=== PATIENT | female | born 1990 ===

== ENCOUNTER 2018-12-22 16:50 | Emergency (ER) | payer OTHER ==
[~2018-12-22] VITALS: Ht 157.5 cm; Wt 99.8 kg
[~2018-12-22 16:50] MED LIST: FOLIC ACID0.4 MG PO; PRENATAL1 TAB PO
== END 2018-12-22 19:05 | disposition home or self-care (01) ==
LOC: ER 16:50
DX: M79.18 Myalgia, other site (principal); R51 Headache